=== PATIENT | female | born 1980 | race Caucasian/White ===

== ENCOUNTER 2018-01-26 19:17 | Emergency (ER) | payer OTHER, SELFPAY ==
[2018-01-26 19:21] VITALS: BP 121/87; PULSE 90; RESP 18; TEMP 37.1; O2SAT 97; BMI 28.2
--- NOTE | 2018-01-26 19:34 | DI.US.S_ITS ---
PROCEDURE: US OB <= 14 WEEKS FETUS INDICATIONS: Vaginal bleeding, . OUTSIDE/PRIOR DATING DATA: Last menstrual period (LMP): 12/21/17. LMP-based estimated date of delivery ([facility]): 09/27/18. First dating scan (date and location): [facility], 01[facility]. Estimated date of delivery ([facility]) from first dating scan: 09/28/18. TECHNIQUE: Real-time scanning was performed of the fetus and maternal pelvic organs, with image documentation. Endovaginal scanning was also performed to better visualize the fetus and maternal ovaries. COMPARISON: None. FINDINGS: Embryo: There is a 0.4 x 0.3 x 0.3 cm oval fluid collection consistent with a gestational sac within the endometrium, giving a mean gestational sac diameter of 0.3 cm (equivalent to a composite gestational age of 5 weeks 1 day). No yolk sac or heartbeat is identified. Measurement variability in dating: +/- 4 weeks by LMP, +/- 7 days by mean sac diameter (use before 6 weeks gestation if crown-rump length not able to be measured), +/- 5 days by crown-rump length (up to 8 weeks 6 days gestation), +/- 7 days by crown-rump length (up to 13 weeks 6 days gestation). Maternal organs: Ovaries are not well-seen on this exam. Limited images through the kidneys demonstrate no hydronephrosis. IMPRESSION: #1. 0.4 x 0.3 x 0.3 cm oval fluid collection within the endometrium may represent a gestational sac, which if true would correlate with a composite gestational age of 5 weeks, 1 day. No yolk sac or heartbeat is identified, but this is not unexpected given the early gestational age. Recommend followup pelvic ultrasound and correlation with beta hCG levels. #2. The ovaries and adnexa were not well seen on this exam. Preliminary results were given by the upset operator with the ordering provider Dr. Kulkarni at 2010 hrs. on 01/26/18. Dictated by: Ajay Arroyo M.D. on 01/26/2018 at 21:11 Approved by: Ajay Arroyo M.D. on 01/26/2018 at 21:18
--- NOTE | 2018-01-26 19:38 | ED_ITS ---
HPI - General Chief complaint: Urogenital-Female Stated complaint: 5WKS PREG,SPOTTING Time Seen by Provider: 01/26/18 19:32 Source: patient Mode of arrival: ambulatory Limitations: no limitations History of Present Illness HPI Narrative: The patient is a 37-year-old female who presents with vaginal spotting. She thinks she is about 5 weeks . She is . She knows that she is Rh negative she had a RhoGAM shot for her previous miscarriage in . She has been having some brown dark blood spotting. Mild back pain but they were on a boat all day yesterday. No fever or chills. MD Complaint: vaginal bleeding Related Data Allergies Allergy/AdvReac Type Severity Reaction Status Date / Time amoxicillin Allergy Anaphylaxis Verified 01/26/18 19:25 Review of Systems Review of Systems GENERAL: Denies chills, fatigue, malaise, fever, sweats, travel HEENT: Denies sinus pain, ear pain, sore throat, difficulty swallowing, neck pain RESPIRATORY: Denies dyspnea, cough, wheezing, hemoptysis, sputum. CARDIOVASCULAR: Denies chest pain, palpitations, orthopnea, edema GASTROINTESTINAL: Denies nausea, vomiting, abdominal pain, diarrhea, constipation, melena. : Denies dysuria, frequency, incontinence, hematuria, urinary retention, flank pain. 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 HEENT: Head atraumatic,EOMI, pupils reactive CARDIOVASCULAR: Regular rate and rhythm without murmurs, rubs or gallops. RESPIRATORY: Breath sounds equal bilaterally, no wheezes rales or rhonchi. ABDOMEN: Soft, nontender. Normoactive bowel sounds all 4 quadrants. No guarding or rebound. : No CVA tenderness EXTREMITIES: Normal range of motion, no clubbing or edema. Neurovascularly intact NEUROLOGICAL: Alert and oriented x4.Normal gait and speech. Cranial nerves II through XII grossly intact. SKIN: Warm, dry, no laceration, no petechiae, no rashes or lesions. Course Orders Ordered: Discontinued Medications Rho Immune Globulin (Hyperrho S-D) 1,500 unit IM NOW ONE Stop: 01/26/18 21:46 Vital Signs - 8 hr 01/26/18 19:21 01/26/18 20:55 Temperature 98.8 F 98.0 F Pulse Rate 90 78 Respiratory Rate 18 16 Blood Pressure 121/87 H Blood Pressure [Right Arm] 112/72 Pulse Oximetry 97 99 MDM - OB/Uterine Contractions Lab Data Attestation: I reviewed the patient's lab results. UA POC negative see nursing Result diagrams: 01/26/18 20:37 01/26/18 20:37 Lab Results 01/26/18 01/26/18 01/26/18 Range/Units 20:37 20:37 20:37 WBC 7.9 (4.5-11.0) X10^3/uL RBC 4.57 (4.0-5.2) X10^6/uL Hgb 13.4 (12.0-16.0) g/dL Hct 39.7 (36-46) % MCV 86.8 (80-100) fL MCH 29.3 (26-34) PG MCHC 33.8 (30-36) % RDW 12.5 (11.6-14.8) % Plt Count 218 (150-400) X10^3/uL Neut % (Auto) 55.2 (50-75) % Lymph % (Auto) 31.0 (25-40) % [place] % (Auto) 8.9 (3-14) % Eos % (Auto) 4.2 H (2-4) % Baso % (Auto) 0.7 (0-2) % Neut # (Auto) 4300 (7465-2585) /uL Sodium 140 (137-145) mmol/L Potassium 4.0 (3.4-5.1) mmol/L Chloride 102 (98-107) mmol/L Carbon Dioxide 29 (22-32) mmol/L BUN 15 (7-17) mg/dL Creatinine 0.70 (0.52-1.04) mg/dL Estimated GFR > 60.0 (>60) mL/min BUN/Creatinine Ratio 21.4 (6-22) Glucose 90 (70-100) mg/dL Calcium 9.4 (8.4-10.2) mg/dL Total Bilirubin 0.2 (0.2-1.3) mg/dL AST 18 (14-36) IU/L ALT 22 (9-52) IU/L Alkaline Phosphatase 68 (38-126) U/L Total Protein 6.7 (6.3-8.2) g/dL Albumin 3.9 (3.5-5.0) g/dL Globulin 2.8 (1.7-4.1) g/dL Albumin/Globulin Ratio 1.4 (1.0-2.8) HCG, Quant 225.67 mIU/mL Blood Type O Negative Imaging Data OB <14 wks: Radiologist's impression: PROCEDURE: US OB <= 14 WEEKS FETUS INDICATIONS: Vaginal bleeding, . OUTSIDE/PRIOR DATING DATA: Last menstrual period (LMP): 12/21/17. LMP-based estimated date of delivery ([facility]): 09/27/18. First dating scan (date and location): [facility], 01/26/18. Estimated date of delivery ([facility]) from first dating scan: 09/28/18. TECHNIQUE: Real-time scanning was performed of the fetus and maternal pelvic organs, with image documentation. Endovaginal scanning was also performed to better visualize the fetus and maternal ovaries. COMPARISON: None. FINDINGS: Embryo: There is a 0.4 x 0.3 x 0.3 cm oval fluid collection consistent with a gestational sac within the endometrium, giving a mean gestational sac diameter of 0.3 cm ( equivalent to a composite gestational age of 5 weeks 1 day). No yolk sac or heartbeat is identified. Measurement variability in dating: +/- 4 weeks by LMP, +/- 7 days by mean sac diameter (use before 6 weeks gestation if crown-rump length not able to be measured), +/ - 5 days by crown-rump length (up to 8 weeks 6 days gestation), +/- 7 days by crown-rump length (up to 13 weeks 6 days gestation). Maternal organs: Ovaries are not well-seen on this exam. Limited images through the kidneys demonstrate no hydronephrosis. IMPRESSION: #1. 0.4 x 0.3 x 0.3 cm oval fluid collection within the endometrium may represent a gestational sac, which if true would correlate with a composite gestational age of 5 weeks, 1 day. No yolk sac or heartbeat is identified, but this is not unexpected given the early gestational age. Recommend followup pelvic ultrasound and correlation with beta hCG levels. #2. The ovaries and adnexa were not well seen on this exam. Preliminary results were given by the room service server with the ordering provider Dr. Kulkarni at 2010 hrs. on 01/26/18. Dictated by: Ajay Arroyo M.D. on 01/26/2018 at 21:11 Approved by: Ajay Arroyo M.D. on 01/26/2018 at 21:18 MDM Narrative Medical decision making narrative: Patient is Rh negative. We did discuss program. However broken is usually given later in she does not have severe significant bleeding at this time it does seem to just be spotting. At this time patient declines RhoGAM shot and will follow up with her OBGYN. I discussed all findings with the patient. Education has been performed regarding treatment plan, diagnosis, warning signs and symptoms and all concerns have been addressed. Verbally agree with and understood all of the above. Discharge Plan Departure Patient Disposition: Home, Self-Care Clinical Impression: , spontaneous threatened Discharge Date/Time: 01/26/18 22:04 Interventions: ED Discharge Assessment Last Done: 01/26/18 22:04 Instructions: Threatened Activity Restrictions/Additional Instructions: [id number] *You have been diagnosed with threatened *What to do: pelvic rest Need recheck blood in 2 days *Continue to take medications as directed *Follow up with your primary care provider in 2-3 days *Return to ER if you should have increase abdominal pain, increased vaginal bleeding, or any new, worsening or concerning symptoms
--- NOTE | 2018-01-26 19:39 | PC.NURSE ---
spotting, described as mild, began earlier today, denies abd pain/dysuria/fever/chills/trauma or other sx, pt reports miscarried preg x1 in past
[2018-01-26 20:46] LABS: Add Manual Diff / Slide Review NO; Basophils Percent Auto 0.7 % (0-2); Eosinophils Percent Auto 4.2 % (2-4); Hematocrit 39.7 % (36-46); Hemoglobin 13.4 g/dL (12.0-16.0); Mean Corpuscular HGB Conc 33.8 % (30-36); Mean Corpuscular Hemoglobin 29.3 PG (26-34); Mean Corpuscular Volume 86.8 fL (80-100); Monocytes Percent Auto 8.9 % (3-14); Neutrophils Absolute Auto 4300 /uL (3000-5900); Neutrophils Percent Auto 55.2 % (50-75); Platelet Count 218 X10^3/uL (150-400); Red Blood Cell Count 4.57 X10^6/uL (4.0-5.2); Red Cell Distribution Width 12.5 % (11.6-14.8); White Blood Cell Count 7.9 X10^3/uL (4.5-11.0)
[2018-01-26 20:55] VITALS: BP 112/72; PULSE 78; RESP 16; TEMP 36.7; O2SAT 99
[2018-01-26 20:59] LABS: Alanine Aminotransferase 22 IU/L (9-52); Albumin 3.9 g/dL (3.5-5.0); Albumin Globulin Ratio 1.4 (1.0-2.8); Alkaline Phosphatase 68 U/L (38-126); Aspartate Aminotransferase 18 IU/L (14-36); BUN Creatinine Ratio 21.4 (6-22); Bilirubin Total 0.2 mg/dL (0.2-1.3); Blood Urea Nitrogen 15 mg/dL (7-17); Calcium 9.4 mg/dL (8.4-10.2); Carbon Dioxide 29 mmol/L (22-32); Chloride 102 mmol/L (98-107); Estimated Glomerular Filt Rate > 60.0 mL/min (>60); Globulin 2.8 g/dL (1.7-4.1); Glucose 90 mg/dL (70-100); HEMOLYSIS < 15 (0-50); Sodium 140 mmol/L (137-145); Total Protein 6.7 g/dL (6.3-8.2)
[2018-01-26 21:15] LABS: HCG Quantitative /Beta subunit 225.67 mIU/mL
== END 2018-01-26 22:04 | disposition home or self-care (01) ==
PROVIDERS: Emergency Provider Emergency Medicine
DX: O20.0 Threatened abortion (principal); Z3A.01 Less than 8 weeks gestation of pregnancy
CPT/HCPCS: 36415; 76801; 76817; 80053; 81003; 81025; 84702; 85025; 86900; 86901; 99282; 99284